=== PATIENT | female | born 1995 ===

== ENCOUNTER 2016-08-22 00:13 | Emergency (ER) | payer SELFPAY ==
[2016-08-22 00:46] VITALS: BP 103/59; PULSE 81; RESP 16; TEMP 98.5; O2SAT 99
[2016-08-22] MEDS: Sodium Chloride 0.9% 1,000 ML IV STA ×2 (01:23→01:28)
[2016-08-22 01:28] LABS: BASO # 0.1 K/uL (0.0-0.2); BASO % 1.3 % (0.0-2.0); EOS # 0.3 K/uL (0.0-0.7); EOS % 4.1 % (0.0-4.0); HEMATOCRIT 38.3 % (34.0-47.0); LYMPH % 36.8 % (20.0-40.0); MEAN CELL VOLUME 91.8 fl (81.0-99.0); MEAN CORPUSCULAR HEMOGLOBIN 31.2 pg (27.0-31.0); MEAN PLATELET VOLUME 8.8 fl (7.2-11.7); MONO # 0.7 K/uL (0.0-0.8); MONO % 8.9 % (0.0-10.0); NEUT % 48.9 % (50.0-75.0); RED CELL DISTRIBUTION WIDTH 12.5 % (11.5-14.5); WHITE BLOOD COUNT 8.2 K/uL (4.8-10.8)
[2016-08-22 01:39] LABS: ALB/GLOB RATIO 1.2 (1.0-2.1); ALKALINE PHOSPHATASE 49 U/L (38-126); ALT/SGPT 52 U/L (9-52); AST/SGOT 29 U/L (14-36); BILIRUBIN,TOTAL 0.3 mg/dl (0.2-1.3); BLOOD UREA NITROGEN 18 mg/dl (7-17); CALCIUM 9.2 mg/dL (8.4-10.2); CARBON DIOXIDE 25 mmol/L (22-30); CHLORIDE 102 mmol/L (98-107); GFR AFRICAN-AMERICAN > 60; GLUCOSE,RANDOM 132 mg/dL (65-105); POTASSIUM 3.6 MMOL/L (3.6-5.0); SODIUM 134 mmol/l (132-148); TOTAL PROTEIN 7.5 G/DL (6.3-8.2)
--- NOTE | 2016-08-22 03:29 | ED PDOC ---
HPI: General Adult Time Seen by Provider: 08/22/16 00:43 Chief Complaint (Nursing): Anxiety Chief Complaint (Provider): headache, stress History Per: Patient History/Exam Limitations: no limitations Onset/Duration Of Symptoms: Days (4), Waxing/Waning Current Symptoms Are (Timing): Gone Now Additional History Per: Patient Additional Complaint(s): 20 y/o female presents for eval of intermittent headaches x 4 days. Patient states she is under a lot of stress lately due to family issues at home, and feels to get very "anxious" at times because she can not handle the stress. Patient notes headaches to resolve with ibuprofen, none at present. Patient states her symptoms are better when she is not at home. Denies fever, dizziness , nausea/vomiting, extremity numbness/weakness, chest pain, shortness of breath , palpitations, suicidal/homicidal ideations. Past Medical History Reviewed: Historical Data, Nursing Documentation, Vital Signs Vital Signs: Last Vital Signs Temp 98.5 F 08/22/16 00:39 Pulse 81 08/22/16 00:39 Resp 16 08/22/16 00:39 BP 103/59 L 08/22/16 00:39 Pulse Ox 99 08/22/16 00:39 - Medical History PMH: Anxiety - Surgical History Surgical History: No Surg Hx - Family History Family History: States: Unknown Family Hx - Living Arrangements Living Arrangements: With Family - Social History Current smoker - smoking cessation education provided: Yes Alcohol: None Drugs: Denies - Home Medications Home Medications: Ambulatory Orders Medication Instructions Recorded Ibuprofen [Motrin] 1 tab PO Q8 PRN #21 tab 05/28/14 diaZEpam [Valium] 1 tab PO Q8 PRN #8 tab 05/28/14 Ciprofloxacin/Ciprofloxa HCl 500 mg PO Q12 #14 tab 05/20/15 [Ciprofloxacin] traMADol [Ultram] 50 mg PO Q6 PRN #16 tab 05/20/15 Ibuprofen 600 mg PO Q8 #30 tab 07/15/15 - Allergies Allergies/Adverse Reactions: Allergies Allergy/AdvReac Type Severity Reaction Status Date / Time No Known Allergies Allergy Verified 07/15/15 20:25 Review of Systems ROS Statement: Except As Marked, All Systems Reviewed And Found Negative Neurological: Positive for: Headache Psych: Positive for: Anxiety Physical Exam - Reviewed Nursing Documentation Reviewed: Yes Vital Signs Reviewed: Yes - Physical Exam Appears: Positive for: Well, Non-toxic, No Acute Distress Head Exam: Positive for: ATRAUMATIC, NORMAL INSPECTION, NORMOCEPHALIC Skin: Positive for: Normal Color Eye Exam: Positive for: Normal appearance ENT: Positive for: Normal ENT Inspection Cardiovascular/Chest: Positive for: Regular Rate, Rhythm Respiratory: Positive for: Normal Breath Sounds Gastrointestinal/Abdominal: Positive for: Normal Exam Back: Positive for: Normal Inspection Extremity: Positive for: Normal ROM Neurologic/Psych: Positive for: Alert, Oriented - Laboratory Results Result Diagrams: 08/22/16 01:21 08/22/16 01:21 - ECG O2 Sat by Pulse Oximetry: 99 - Progress ED Course And Treament: labs, IV fluids, crisis eval Patient refused IV fluids. Patient evaluated by core worker; does not meet criteria for admission at this time as per Dr. Berry. Follow up outpatient. Return to ED for worsening/concerning symptoms. Disposition - Clinical Impression Clinical Impression: Anxiety, Headache - Patient ED Disposition Is Patient to be Admitted: No Counseled Patient/Family Regarding: Studies Performed, Diagnosis, Need For Followup - Disposition Disposition: Routine/Home Disposition Time: 03:32 Condition: GOOD Instructions: Anxiety (ED), Acute Headache (ED)
== END 2016-08-22 04:01 | disposition home or self-care (01) ==
LOC: H.ER 00:13
DX: F41.9 Anxiety disorder, unspecified (principal); R51 Headache; F17.200 Nicotine dependence, unspecified, uncomplicated
CPT/HCPCS: 80053; 81025; 85025; 99282; Q0177

== ENCOUNTER 2016-12-01 23:17 | Emergency (ER) | payer SELFPAY ==
[2016-12-01 23:31] VITALS: BP 128/78; PULSE 80; RESP 16; TEMP 98.5; O2SAT 100
--- NOTE | 2016-12-01 23:57 | ED PDOC ---
HPI: CCC, URI, Sore Throat Time Seen by Provider: 12/01/16 23:25 Chief Complaint (Nursing): ENT Problem Chief Complaint (Provider): Sore throat, weakness, constipation History Per: Patient Additional Complaint(s): 21 yo female, no PMH, presents to ED for evaluation of possible "tonsil stone" x 5 days. Patient also c/o general body aches and headache. Past Medical History Reviewed: Nursing Documentation, Vital Signs Vital Signs: Last Vital Signs Temp 98.5 F 12/01/16 23:29 Pulse 80 12/01/16 23:29 Resp 16 12/01/16 23:29 BP 128/78 12/01/16 23:29 Pulse Ox 100 12/01/16 23:57 - Medical History PMH: Anxiety Denies: Diabetes, Hepatitis, HIV, HTN, Seizures, Sexually Transmitted Disease - Surgical History Surgical History: No Surg Hx - Family History Family History: States: Unknown Family Hx - Living Arrangements Living Arrangements: With Family - Social History Current smoker - smoking cessation education provided: No Alcohol: Social Drugs: Denies - Home Medications Home Medications: Ambulatory Orders Medication Instructions Recorded Ibuprofen [Motrin] 1 tab PO Q8 PRN #21 tab 05/28/14 diaZEpam [Valium] 1 tab PO Q8 PRN #8 tab 05/28/14 Ciprofloxacin/Ciprofloxa HCl 500 mg PO Q12 #14 tab 05/20/15 [Ciprofloxacin] traMADol [Ultram] 50 mg PO Q6 PRN #16 tab 05/20/15 Ibuprofen 600 mg PO Q8 #30 tab 07/15/15 - Allergies Allergies/Adverse Reactions: Allergies Allergy/AdvReac Type Severity Reaction Status Date / Time No Known Allergies Allergy Verified 12/01/16 23:28 Review of Systems ROS Statement: Except As Marked, All Systems Reviewed And Found Negative ENT: Positive for: Throat Pain Physical Exam - Reviewed Nursing Documentation Reviewed: Yes Vital Signs Reviewed: Yes - Physical Exam Appears: Positive for: Well, Non-toxic, No Acute Distress Head Exam: Positive for: ATRAUMATIC, NORMAL INSPECTION, NORMOCEPHALIC Skin: Positive for: Normal Color, Warm, DRY Eye Exam: Positive for: EOMI, Normal appearance, PERRL ENT: Positive for: Normal ENT Inspection Neck: Positive for: Normal, Painless ROM Cardiovascular/Chest: Positive for: Regular Rate, Rhythm Respiratory: Positive for: CNT, Normal Breath Sounds Gastrointestinal/Abdominal: Positive for: Normal Exam, Bowel Sounds, Soft Back: Positive for: Normal Inspection Extremity: Positive for: Normal ROM Neurologic/Psych: Positive for: Alert, Oriented - Laboratory Results Result Diagrams: 12/02/16 00:15 12/02/16 00:15 - ECG O2 Sat by Pulse Oximetry: 100 Medical Decision Making Medical Decision Making: diagnotics ordered. labs reviewed with Pt who demonstrated full understanding Disposition - Clinical Impression Clinical Impression: Tonsillolith, Viral syndrome - Patient ED Disposition Is Patient to be Admitted: No - Disposition Disposition: Routine/Home Disposition Time: 01:44 Condition: STABLE Instructions: Viral Syndrome (ED) Forms: [employer] (Persian)
[2016-12-02 00:18] LABS: BASO # 0.1 K/uL (0.0-0.2); BASO % 1.5 % (0.0-2.0); EOS # 0.3 K/uL (0.0-0.7); HEMATOCRIT 41.2 % (34.0-47.0); LYMPH # 2.9 K/uL (1.0-4.3); LYMPH % 38.2 % (20.0-40.0); MEAN CELL VOLUME 92.8 fl (81.0-99.0); MEAN CORPUSCULAR HEMOGLOBIN 30.7 pg (27.0-31.0); MEAN CORPUSCULAR HGB CONC 33.1 g/dL (33.0-37.0); MEAN PLATELET VOLUME 8.7 fl (7.2-11.7); MONO # 0.6 K/uL (0.0-0.8); MONO % 7.9 % (0.0-10.0); NEUT # 3.6 K/uL (1.8-7.0); NEUT % 48.4 % (50.0-75.0); NRBC % 0.1 % (0.0-0.0); RED CELL DISTRIBUTION WIDTH 12.9 % (11.5-14.5); WHITE BLOOD COUNT 7.5 K/uL (4.8-10.8)
[2016-12-02 00:26] LABS: ALB/GLOB RATIO 1.2 (1.0-2.1); ALKALINE PHOSPHATASE 63 U/L (38-126); ALT/SGPT 56 U/L (9-52); AST/SGOT 30 U/L (14-36); BILIRUBIN,TOTAL 0.5 mg/dl (0.2-1.3); BLOOD UREA NITROGEN 14 mg/dl (7-17); CALCIUM 9.5 mg/dL (8.4-10.2); CARBON DIOXIDE 29 mmol/L (22-30); CHLORIDE 103 mmol/L (98-107); GFR AFRICAN-AMERICAN > 60; GLUCOSE,RANDOM 103 mg/dL (65-105); POTASSIUM 3.9 MMOL/L (3.6-5.0); SODIUM 139 mmol/l (132-148)
--- NOTE | 2016-12-02 09:58 | RAD ---
HISTORY: constipation COMPARISON: 11/13/2011 FINDINGS: BOWEL: Constipation without fecal impaction or obstruction. BONES: Normal. OTHER FINDINGS: None. IMPRESSION: Constipation without impaction obstruction.
== END 2016-12-02 01:37 | disposition home or self-care (01) ==
LOC: H.ER 23:17
DX: B34.9 Viral infection, unspecified (principal); J03.90 Acute tonsillitis, unspecified; F41.9 Anxiety disorder, unspecified; J35.8 Other chronic diseases of tonsils and adenoids

== ENCOUNTER 2017-04-21 22:35 | Emergency (ER) | payer SELFPAY ==
[2017-04-21 22:43] VITALS: TEMP 99
--- NOTE | 2017-04-21 23:10 | ED PDOC ---
HPI: General Adult Time Seen by Provider: 04/21/17 23:09 Chief Complaint (Nursing): Abdominal Pain Chief Complaint (Provider): back pain, abd pain History Per: Patient Additional Complaint(s): 21-year-old female presents to emergency department with left rib pain that started yesterday. Patient denies any fall or trauma. She states the pain is worse with any movements of the torso and with deep inspiration. Patient radiates to left flank region. No associated cough, fever or chills. No associated nausea, vomiting, diarrhea or constipation. She did not take anything for pain since it started yesterday. She rates current pain as an 8 out of 10. She denies any history of kidney stones and has no urinary complaints. PMD: none Past Medical History Reviewed: Historical Data, Nursing Documentation, Vital Signs Vital Signs: Last Vital Signs Temp 99 F 04/21/17 22:40 Pulse 87 04/21/17 22:40 Resp 20 04/21/17 22:40 BP 103/52 L 04/21/17 22:40 Pulse Ox 100 04/22/17 01:27 - Medical History PMH: Anxiety - Surgical History Surgical History: No Surg Hx - Family History Family History: States: No Known Family Hx - Living Arrangements Living Arrangements: With Family - Social History Current smoker - smoking cessation education provided: Yes Alcohol: None Drugs: Denies - Home Medications Home Medications: Ambulatory Orders Medication Instructions Recorded Ibuprofen [Motrin] 1 tab PO Q8 PRN #21 tab 05/28/14 diaZEpam [Valium] 1 tab PO Q8 PRN #8 tab 05/28/14 Ciprofloxacin/Ciprofloxa HCl 500 mg PO Q12 #14 tab 05/20/15 [Ciprofloxacin] traMADol [Ultram] 50 mg PO Q6 PRN #16 tab 05/20/15 Ibuprofen 600 mg PO Q8 #30 tab 07/15/15 Cyclobenzaprine [Cyclobenzaprine 10 mg PO TID PRN #20 tab 04/22/17 HCl] Naproxen [Naprosyn] 500 mg PO BID #20 tab 04/22/17 - Allergies Allergies/Adverse Reactions: Allergies Allergy/AdvReac Type Severity Reaction Status Date / Time No Known Allergies Allergy Verified 12/01/16 23:28 Review of Systems ROS Statement: Except As Marked, All Systems Reviewed And Found Negative Constitutional: Negative for: Fever, Chills Cardiovascular: Positive for: Chest Pain (left rib pain) Respiratory: Negative for: Cough, Shortness of Breath, SOB with Exertion, Wheezing Gastrointestinal: Negative for: Nausea, Vomiting Genitourinary Female: Negative for: Dysuria Neurological: Negative for: Headache, Dizziness Physical Exam - Reviewed Nursing Documentation Reviewed: Yes Vital Signs Reviewed: Yes - Physical Exam Appears: Positive for: Well Skin: Positive for: Normal Color. Negative for: Rash Eye Exam: Negative for: Normal appearance Neck: Positive for: Pain On Movement Of Neck Cardiovascular/Chest: Positive for: Regular Rate, Rhythm, Other (Moderate diffuse tenderness left lateral chest wall with no erythema or palpable bony deformity) Respiratory: Positive for: Normal Breath Sounds. Negative for: Wheezing, Respiratory Distress Gastrointestinal/Abdominal: Positive for: Soft, Tenderness (LUQ). Negative for : Distended, Guarding, Rebound Back: Positive for: L CVA Tenderness. Negative for: R CVA Tenderness Extremity: Negative for: Pedal Edema Neurologic/Psych: Positive for: Alert, Oriented - Laboratory Results Result Diagrams: 04/21/17 23:49 04/21/17 23:49 Urine POC: Negative Urine dip results: Negative for: Leukocyte Esterase, Blood, Nitrate, Ketones, Glucose, Bilirubin, Protein - ECG Interpretation Of ECG: SR 61 bpm with PVC's, reviewed by PA and ED attending O2 Sat by Pulse Oximetry: 100 Pulse Ox Interpretation: Normal - Other Rad CXR with left rib series X-Ray: Interpreted by Me, Viewed By Me X-Ray Interpretation: no acute finding CT chest X-Ray: Read By Radiologist X-Ray Interpretation: no PE, no acute finding Medical Decision Making Medical Decision Makin21 year old with left rib and flank pain Plan: Urine dip and test EKG CXR with left rib series CBC CMP Trop D-dimer Lipase IVF PO tylenol IV toradol D-dimer is markedly elevated, CT chest ordered. CT is negative. Patient is aware of all diagnostic testing results. All questions answered. Patient reports improvement to pain after meds given. Rx for Naprosyn and Flexeril given, incentive spirometer given. Patient was referred to clinic for follow-up and is aware she can return to ED any time if acutely worse. Disposition - Clinical Impression Clinical Impression: Rib pain on left side - Patient ED Disposition Is Patient to be Admitted: No Counseled Patient/Family Regarding: Studies Performed, Diagnosis, Need For Followup, Rx Given - Disposition Referrals: [facility] [Outside] Disposition: Routine/Home Disposition Time: 01:36 Condition: STABLE Additional Instructions: Rest affected area and avoid heavy lifting. Take prescription meds as directed as needed for pain. Follow-up with clinic in 2-3 days or return to emergency department any time if acutely worse. Prescriptions: Cyclobenzaprine [Cyclobenzaprine HCl] 10 mg PO TID PRN #20 tab PRN Reason: Muscle Spasm Naproxen [Naprosyn] 500 mg PO BID #20 tab Instructions: Muscle Strain (ED), Rib Contusion (ED) Forms: [employer] (Turkish) Results - Lab Results Lab Results: 04/21/17 04/21/17 04/21/17 23:49 23:49 23:49 WBC 10.8 RBC 4.40 Hgb 13.5 Hct 40.7 MCV 92.6 MCH 30.7 MCHC 33.2 RDW 13.0 Plt Count 221 MPV 8.6 Neut % (Auto) 65.8 Lymph % (Auto) 23.9 Yell % (Auto) 7.0 Eos % (Auto) 2.3 Baso % (Auto) 1.0 Neut # 7.1 H Lymph # 2.6 Yell # 0.8 Eos # 0.2 Baso # 0.1 D-Dimer, Quantitative 1439 H Sodium 140 Potassium 4.0 Chloride 101 Carbon Dioxide 31 H Anion Gap 12 BUN 10 Creatinine 0.9 Est GFR ( Amer) > 60 Est GFR (Non-Af Amer) > 60 Random Glucose 91 Calcium 9.3 Total Bilirubin 0.5 AST 28 ALT 37 Alkaline Phosphatase 53 Troponin I < 0.0120 Total Protein 7.7 Albumin 4.0 Globulin 3.7 Albumin/Globulin Ratio 1.1 Lipase 71
[2017-04-21] MEDS ORDERED: Sodium Chloride 0.9% 1,000 ML IV STA (23:17)
[2017-04-21 23:56] LABS: BASO # 0.1 K/uL (0.0-0.2); EOS # 0.2 K/uL (0.0-0.7); EOS % 2.3 % (0.0-4.0); HEMOGLOBIN 13.5 g/dL (12.0-16.0); LYMPH # 2.6 K/uL (1.0-4.3); LYMPH % 23.9 % (20.0-40.0); MEAN CELL VOLUME 92.6 fl (81.0-99.0); MEAN CORPUSCULAR HEMOGLOBIN 30.7 pg (27.0-31.0); MEAN CORPUSCULAR HGB CONC 33.2 g/dL (33.0-37.0); MEAN PLATELET VOLUME 8.6 fl (7.2-11.7); MONO # 0.8 K/uL (0.0-0.8); NEUT # 7.1 K/uL (1.8-7.0); NEUT % 65.8 % (50.0-75.0); NRBC % 0.1 % (0.0-0.0); RBC 4.4 Mil/uL (3.80-5.20); WHITE BLOOD COUNT 10.8 K/uL (4.8-10.8)
[2017-04-22 00:06] LABS: ALB/GLOB RATIO 1.1 (1.0-2.1); ALT/SGPT 37 U/L (9-52); AST/SGOT 28 U/L (14-36); BLOOD UREA NITROGEN 10 mg/dl (7-17); CALCIUM 9.3 mg/dL (8.4-10.2); GFR AFRICAN-AMERICAN > 60; GFR NON-AFRICAN AMERICAN > 60; LIPASE 71 U/L (23-300)
[2017-04-22] MEDS ORDERED: Iodixanol 320 MG/ML 100 ML BOTTLE IV ONE (00:24)
[2017-04-22] MEDS ORDERED: Sodium Chloride 0.9% 50 ML IV ONE (00:25)
[2017-04-22 02:32] VITALS: BP 96/60; PULSE 79; RESP 18; O2SAT 97
--- NOTE | 2017-04-22 10:36 | CT ---
PROCEDURE: CT Chest with contrast (Pulmonary Angiogram) HISTORY: left rib pain, SOB COMPARISON: None available. TECHNIQUE: Axial computed tomography images were obtained of the chest in the pulmonary arterial phase of enhancement. Coronal and sagittal reformatted images were created and reviewed. Intravenous contrast dose: 80 cc Visipaque 320 contrast material Radiation dose: Total exam DLP = 220.98 mGy-cm. This CT exam was performed using one or more of the following dose reduction techniques: Automated exposure control, adjustment of the mA and/or kV according to patient size, and/or use of iterative reconstruction technique. FINDINGS: PULMONARY ARTERIES: Unremarkable. No pulmonary embolism. AORTA: No acute findings. No thoracic aortic aneurysm. LUNGS: Unremarkable. No nodule, mass or pulmonary consolidation. PLEURAL SPACES: Unremarkable. No effusion or pneuomothorax. HEART: Unremarkable. No cardiomegaly. No significant pericardial effusion. LYMPH NODES: No lymphadenopathy. BONES, CHEST WALL: Unremarkable. No fracture or destructive lesion OTHER FINDINGS: Unremarkable. IMPRESSION: Unremarkable CT pulmonary angiogram. No pulmonary embolus.
--- NOTE | 2017-04-22 10:37 | RAD ---
PROCEDURE: Radiographs of the Chest and Left Ribs. HISTORY: trauma COMPARISON: None available. TECHNIQUE: Frontal radiograph of the chest and multiple oblique radiographs of the left ribs were obtained. FINDINGS: LEFT RIBS: No fracture or focal lesion visualized. LUNGS: Clear. PLEURA: No pneumothorax or pleural fluid. CARDIOVASCULAR: Normal sized heart. No pulmonary vascular congestion. OTHER FINDINGS: None. IMPRESSION: Unremarkable radiographs of the chest and left ribs. No left rib fracture.
--- NOTE | 2017-04-23 12:54 | CARD ---
APPROVED REPORT EKG Measurement Heart [id number] <Conclusion> Sinus rhythm with premature supraventricular complexes Otherwise normal ECG
== END 2017-04-22 02:32 | disposition home or self-care (01) ==
LOC: H.ER 22:35
DX: R07.2 Precordial pain (principal); F41.9 Anxiety disorder, unspecified; I49.1 Atrial premature depolarization
CPT/HCPCS: 71101; 71275; 80053; 81025; 83690; 84484; 85025; 85378; 93005; 96360; 99284; J1885; J7040; Q9967

== ENCOUNTER 2017-05-07 19:52 | Emergency (ER) | payer SELFPAY ==
[2017-05-07 20:14] VITALS: BP 102/62; PULSE 78; RESP 16; TEMP 98.5; O2SAT 99
--- NOTE | 2017-05-07 20:51 | ED PDOC ---
HPI: General Adult Time Seen by Provider: 05/07/17 20:21 Chief Complaint (Nursing): Abnormal Skin Integrity Chief Complaint (Provider): Abnormal Skin Integrity History Per: Patient History/Exam Limitations: no limitations Onset/Duration Of Symptoms: Days (x2) Current Symptoms Are (Timing): Still Present Additional Complaint(s): 21 year old female who presents to the emergency department with a complaint of left breast lump and discomfort ongoing for 2 days. Denied any fever, chills, redness, swelling or nipple discharge of left breast. Patient reported aunt has history of breast cancer on her father's side and recently finishing her menstrual cycle. PMD: none provided Past Medical History Reviewed: Historical Data, Nursing Documentation, Vital Signs Vital Signs: Last Vital Signs Temp 98.5 F 05/07/17 20:12 Pulse 78 05/07/17 20:12 Resp 16 05/07/17 20:12 BP 102/62 05/07/17 20:12 Pulse Ox 99 05/07/17 20:58 - Medical History PMH: Anxiety Denies: Diabetes, Hepatitis, HIV, HTN, Seizures, Sexually Transmitted Disease - Surgical History Surgical History: No Surg Hx - Family History Family History: States: Unknown Family Hx - Social History Current smoker - smoking cessation education provided: No Alcohol: None Drugs: Denies - Home Medications Home Medications: Ambulatory Orders Medication Instructions Recorded Ibuprofen [Motrin] 1 tab PO Q8 PRN #21 tab 05/28/14 diaZEpam [Valium] 1 tab PO Q8 PRN #8 tab 05/28/14 Ciprofloxacin/Ciprofloxa HCl 500 mg PO Q12 #14 tab 05/20/15 [Ciprofloxacin] traMADol [Ultram] 50 mg PO Q6 PRN #16 tab 05/20/15 Ibuprofen 600 mg PO Q8 #30 tab 07/15/15 Cyclobenzaprine [Cyclobenzaprine 10 mg PO TID PRN #20 tab 04/22/17 HCl] Naproxen [Naprosyn] 500 mg PO BID #20 tab 04/22/17 - Allergies Allergies/Adverse Reactions: Allergies Allergy/AdvReac Type Severity Reaction Status Date / Time No Known Allergies Allergy Verified 12/01/16 23:28 Review of Systems ROS Statement: Except As Marked, All Systems Reviewed And Found Negative Constitutional: Negative for: Fever, Chills Cardiovascular: Positive for: Other (left breast lump and discomfort). Negative for: Edema (or redness/discharge) Physical Exam - Reviewed Nursing Documentation Reviewed: Yes Vital Signs Reviewed: Yes - Physical Exam Appears: Positive for: Well, Non-toxic, No Acute Distress Cardiovascular/Chest: Positive for: Regular Rate, Rhythm, Chest Non Tender, Other (palpable soft, mobile cystic structure 7 o'clock position of left breast. No tnderness, erythema, nipple retraction/discharge noted) Respiratory: Positive for: Normal Breath Sounds, Decreased Breath Sounds. Negative for: Respiratory Distress Neurologic/Psych: Positive for: Alert (x3), Oriented - ECG O2 Sat by Pulse Oximetry: 99 (RA) Pulse Ox Interpretation: Normal - Progress ED Course And Treament: breast u/s EXAM: US Left Breast, Complete EXAM DATE/TIME: 05/07/2017 8:40 PM CLINICAL HISTORY: 21 years old, female; Pain and signs and symptoms; Mass, lump, or swelling; Left ; Other: Pain at palpable lump area lt breast6; Additional info: Painful lump TECHNIQUE: Complete real time ultrasound of all four quadrants of the left breast and the retroareolar region, including ultrasound of the axilla when performed. COMPARISON: No relevant prior studies available. FINDINGS: There is a lobulated simple cyst in the 7:00 position of the left breast measuring 1.5 x 1.4 x 0.6 cm. This is present 1 cm is from the nipple and corresponds to the clinically palpable area. IMPRESSION: BI-RADS 2. There is a simple cyst in the left breast at the area of clinical concern. 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 Return precautions given. Medical Decision Making Medical Decision Making: Initial Impression: Cystic breast Initial Plan: * Urine * US breast (left) Scribe Attestation: Documented by Maria Luz Vargas, acting as a scribe for Polly Aguirre PA-C. Provider Scribe Attestation: All medical record entries made by the Scribe were at my direction and personally dictated by me. I have reviewed the chart and agree that the record accurately reflects my personal performance of the history, physical exam, medical decision making, and the department course for this patient. I have also personally directed, reviewed, and agree with the discharge instructions and disposition. Disposition - Clinical Impression Clinical Impression: Cyst of breast - Patient ED Disposition Is Patient to be Admitted: No Counseled Patient/Family Regarding: Studies Performed, Diagnosis, Need For Followup - Disposition Disposition: Routine/Home Disposition Time: 23:05 Condition: GOOD Instructions: Cyst (ED)
--- NOTE | 2017-05-08 11:49 | US ---
PROCEDURE: Left breast mass HISTORY: painful lump COMPARISON: None TECHNIQUE: Standard protocol for this study/examination. FINDINGS: Simple cyst 5.8 x 14.3 mm lobulated 7 o'clock 1 cm from nipple corresponds findings on physical examination. IMPRESSION: BIRADS 2 Benign findings. Recommendation: Continue annual screening mammography, as per ACR guidelines. Concordant results (preliminary interpretation) provided by [facility]. Procedure Completed: 22:09 Preliminary ([facility]) Report: Dictated and Authenticated: 22:48 Final Interpretation: 11:47 May 08, 2017.
== END 2017-05-07 23:56 | disposition home or self-care (01) ==
LOC: H.ER 19:52
DX: N60.02 Solitary cyst of left breast (principal); F41.9 Anxiety disorder, unspecified; Z80.3 Family history of malignant neoplasm of breast

== ENCOUNTER 2017-12-10 02:21 | Emergency (ER) | payer BC ==
[2017-12-10 02:34] VITALS: BMI 18.9
[2017-12-10 02:39] VITALS: RESP 18; TEMP 98.8
--- NOTE | 2017-12-10 03:04 | ED PDOC ---
HPI: Abdomen Time Seen by Provider: 12/10/17 02:27 Chief Complaint (Nursing): Abdominal Pain History Per: Patient History/Exam Limitations: no limitations Onset/Duration Of Symptoms: Days (weeks), Waxing/Waning Current Symptoms Are (Timing): Still Present Location Of Pain/Discomfort: Diffuse Additional Complaint(s): Patient with no PMHx presenting with multiple complaints. States she has had on and off abdominal pain but none now. States her "heart" hurts. States she has pain in her legs as well. States she got her period "twice" in the last month. No fevers. No nausea, vomiting, diarrhea. States she has been urinating more frequently but no pain. PMD: [place] Past Medical History Reviewed: Historical Data, Nursing Documentation, Vital Signs Vital Signs: Last Vital Signs Temp 98.8 F 12/10/17 02:30 Pulse 83 12/10/17 03:44 Resp 18 12/10/17 03:44 BP 107/57 L 12/10/17 03:44 Pulse Ox 99 12/10/17 03:44 - Medical History PMH: Anxiety Denies: Diabetes, Hepatitis, HIV, HTN, Seizures, Sexually Transmitted Disease - Family History Family History: States: Unknown Family Hx - Home Medications Home Medications: Ambulatory Orders Medication Instructions Recorded Ibuprofen [Motrin] 1 tab PO Q8 PRN #21 tab 05/28/14 diaZEpam [Valium] 1 tab PO Q8 PRN #8 tab 05/28/14 Ciprofloxacin/Ciprofloxa HCl 500 mg PO Q12 #14 tab 05/20/15 [Ciprofloxacin] traMADol [Ultram] 50 mg PO Q6 PRN #16 tab 05/20/15 Ibuprofen 600 mg PO Q8 #30 tab 07/15/15 Cyclobenzaprine [Cyclobenzaprine 10 mg PO TID PRN #20 tab 04/22/17 HCl] Naproxen [Naprosyn] 500 mg PO BID #20 tab 04/22/17 Dicyclomine [Bentyl] 20 mg PO BID #30 tab 12/10/17 Ibuprofen [Motrin Tab] 600 mg PO Q6 #30 tab 12/10/17 - Allergies Allergies/Adverse Reactions: Allergies Allergy/AdvReac Type Severity Reaction Status Date / Time No Known Allergies Allergy Verified 12/01/16 23:28 Review of Systems ROS Statement: Except As Marked, All Systems Reviewed And Found Negative Cardiovascular: Positive for: Chest Pain Gastrointestinal: Positive for: Abdominal Pain Musculoskeletal: Positive for: Leg Pain Physical Exam - Reviewed Nursing Documentation Reviewed: Yes Vital Signs Reviewed: Yes - Physical Exam Appears: Positive for: Well, Non-toxic, No Acute Distress Head Exam: Positive for: ATRAUMATIC, NORMAL INSPECTION, NORMOCEPHALIC Skin: Positive for: Normal Color, Warm, DRY Eye Exam: Positive for: EOMI, Normal appearance, PERRL ENT: Positive for: Normal ENT Inspection Neck: Positive for: Normal, Painless ROM Cardiovascular/Chest: Positive for: Regular Rate, Rhythm Respiratory: Positive for: CNT, Normal Breath Sounds Gastrointestinal/Abdominal: Positive for: Normal Exam, Soft. Negative for: Tenderness, Organomegaly, Mass, Distended, Guarding Back: Positive for: Normal Inspection Extremity: Positive for: Normal ROM. Negative for: Tenderness, Pedal Edema, Calf Tenderness, Capillary Refill, Deformity, Swelling Neurologic/Psych: Positive for: Alert, Oriented - Laboratory Results Result Diagrams: 12/10/17 03:07 12/10/17 03:07 - ECG ECG Rhythm: Positive for: Normal QRS, Normal ST Segment, Sinus Rhythm O2 Sat by Pulse Oximetry: 98 Pulse Ox Interpretation: Normal Medical Decision Making Medical Decision MakinAM Patient presenting with multiple complaints, however none are acute --Very well appearing --Normal vitals --EKG NSR, Udip negative --Will check basic blood work to rule out anemia, infection 330AM --Patient's labs normal, udip normal, EKG normal --Patient well appearing and stable for outpatient followup Disposition - Clinical Impression Clinical Impression: Abdominal discomfort - Disposition Referrals: [facility] [Provider Group] Disposition: Routine/Home Disposition Time: 03:37 Condition: STABLE Prescriptions: Dicyclomine [Bentyl] 20 mg PO BID #30 tab Ibuprofen [Motrin Tab] 600 mg PO Q6 #30 tab Instructions: Stomach Ache and Stomach Upset, Joint Pain Forms: [employer] ([employer]ian)
[2017-12-10 03:12] LABS: HEMOGLOBIN 13.2 g/dL (12.0-16.0); MEAN CELL VOLUME 92.1 fl (81.0-99.0); MEAN CORPUSCULAR HEMOGLOBIN 31.4 pg (27.0-31.0); MEAN CORPUSCULAR HGB CONC 34.1 g/dL (33.0-37.0); RBC 4.22 Mil/uL (3.80-5.20); RED CELL DISTRIBUTION WIDTH 13.2 % (11.5-14.5); WHITE BLOOD COUNT 7.6 K/uL (4.8-10.8)
[2017-12-10 03:18] LABS: BLOOD UREA NITROGEN 15 mg/dl (7-17); CALCIUM 8.9 mg/dL (8.4-10.2); GFR NON-AFRICAN AMERICAN > 60
[2017-12-10 03:53] VITALS: BP 107/57; PULSE 83
[2017-12-10 04:00] VITALS: O2SAT 98
--- NOTE | 2017-12-10 06:38 | CARD ---
APPROVED REPORT Date of service: 12/10/2017 EKG Measurement Heart [id number] ID [id number] <Conclusion> Normal sinus rhythm Normal ECG
== END 2017-12-10 03:50 | disposition home or self-care (01) ==
LOC: H.ER 02:21
DX: R10.2 Pelvic and perineal pain (principal)